=== PATIENT | female | born 1960 | race Caucasian/White ===

== ENCOUNTER 2023-09-08 14:53 | Outpatient (CLI) | payer BC, SELFPAY ==
--- NOTE | ~2023-09-08 | CT_ITS ---
EXAMINATION: CT abdomen pelvis wo con DATE: 09/08/2023 15:53 INDICATION: Calculus of kidney. TECHNIQUE: Computed tomography (CT) of the abdomen and pelvis was performed without intravenous contr ast. Automated exposure control and iterative reconstruction technique were employed. The dose-length product was 184.60 mGy-cm. COMPARISON: None. FINDINGS: The visualized portions of the lung bases demonstrate calcified right lung nodules, consist ent with old granulomatous disease. No pleural effusion. The heart size is normal. No pericardial eff usion. Calcifications in the liver and spleen are consistent with old granulomatous disease. The gall bladder, pancreas, and adrenal glands are normal. There is a 6 mm cyst in right kidney. Left kidney i s normal. There is no urolithiasis. There are no dilated loops of bowel. There are no pathologically enlarged lymph nodes. There is no free intraperitoneal fluid. There is mild aortic atherosclerosis. T he bladder is distended. There is mild lumbar spondylosis. IMPRESSION: 1. No urolithiasis. Reviewed, dictated and finalized at location E. [employer] IMPRESSION: 1. No urolithiasis.
--- NOTE | ~2023-09-08 | XR_ITS ---
EXAMINATION: XR abdomen/kub 1V DATE: 09/08/2023 15:37 INDICATION: Calculus of kidney. TECHNIQUE: A supine view of the abdomen on 2 radiographs was obtained. COMPARISON: CT abdomen and pelvis 09/08/2023 FINDINGS: There are no dilated loops of bowel. There are phleboliths in the pelvis. IMPRESSION: 1. No urolithiasis. Reviewed, dictated and finalized at location E. [facility] IMPRESSION: 1. No urolithiasis.
== END 2023-09-08 14:54 | disposition home or self-care (01) ==
LOC: ANHIMG 14:59
PROVIDERS: Visit Provider Urology
DX: N20.0 Calculus of kidney (principal)
CPT/HCPCS: 74018; 74176